=== PATIENT | female | born 1945 | race Caucasian/White ===

== ENCOUNTER → 2018-05-28 | Outpatient (CLI) | payer MEDICARE, OTHER ==
[2015-07-07 16:42] VITALS: BMI 35.7
[~2018-05-28] MED LIST: ASPI-757 PO; CA C1TAB6 PO; COL625PT PO; ESTR0.5T18 PO; FLUT16SP19 NS; FURO-45 PO; GEMF600T96 PO; HYDR-318 PO; LACT1CAP6 PO; LEVO137T23 PO; LORA-630 PO; MOMR ENA; MULT-1085 PO; NAPR500T75 PO; OMEP-218 PO; PRED20TA6 PO; PSYL3.4P2 PO; SERT-181 PO; TURM500C7 PO
[2018-05-28 08:32] LABS: PLATELET COUNT, AUTOMATED 222 K/uL (150-450)
--- NOTE | 2018-05-28 09:31 | EKG ---
FACILITY: [facility] PATIENT NAME: ISAAC CHEATHAM : [id number] MR: [id number]: [id number] EXAM DATE: ORDERING PHYSICIAN: SAMMY YORK TECHNOLOGIST: Test Reason : Pre-op Blood Pressure : / mmHG Vent. Rate : 065 BPM Atrial Rate : 065 BPM P-R Int : 154 ms QRS Dur : 066 ms QT Int : 426 ms P-R-T Axes : 048 019 041 degrees QTc Int : 443 ms Normal sinus rhythm No ST-T abnormalities No previous ECGs available Confirmed by JESSICA ANTOINE ([id number]) on 05/28/2018 3:28:00 PM Referred By: Confirmed By:JESSICA ANTOINE
== END ==
LOC: LAB 08:07
PROVIDERS: ATTEND Anesthesiology
DX: Z01.812 Encounter for preprocedural laboratory examination (principal); Z01.810 Encounter for preprocedural cardiovascular examination; E07.9 Disorder of thyroid, unspecified
CPT/HCPCS: 36415; 82040; 82247; 82310; 82374; 82435; 82565; 82947; 84075; 84132; 84155; 84295; 84443; 84450; 84460; 84520; 85025; 93005